=== PATIENT | male | born 1970 | race African-American/Black ===

== ENCOUNTER 2022-10-26 00:36 | Day surgery (SDC) | payer OTHER, SELFPAY ==
[2022-10-15 12:08] VITALS: BMI 24.9
--- NOTE | 2022-10-25 19:19 | PM.HPGS ---
History of Present Illness History of Present Illness Consent: Risks, benefits, and alternatives have been discussed and questions answered. Patient agrees to proceed with procedure. Chief complaint: neoplasm screening Narrative: Rodo Moran is a 52 year old male who is referred for colon cancer screening. Review of Systems Review of Systems: All systems reviewed & are unremarkable except as noted in HPI and below PMFSH Past Medical History Medical History (Updated 10/26/22 @ 09:30 by Derek Butt MD) HTN (hypertension) Social History Social History Smoking status: Never smoker Alcohol intake: current Drinks per week: 6 Substance use type: marijuana Other substance usage details: twice a week Living arrangements: alone Spiritual care concerns: No Meds Home Medications and Allergies Home Medications Medication Instructions Recorded Confirmed Type amlodipine 10 mg-benazepril 40 mg 1 cap PO DAILY 10/15/22 10/15/22 History capsule tamsulosin 0.4 mg capsule 0.4 mg PO DAILY 10/15/22 10/15/22 History valacyclovir 500 mg tablet 500 mg PO DAILY 10/15/22 10/15/22 History Allergies Allergy/AdvReac Type Severity Reaction Status Date / Time Sulfa (Sulfonamide Allergy Hives Verified 10/26/22 09:13 Antibiotics) Exam Resp: Auscultation: clear to auscultation bilaterally Cardio: Rate: regular rate Rhythm: regular rhythm GI: GI Palp: Yes Soft to palpation and No Tenderness to palpation present (GI) Assessment and Plan Assessment and plan (1) Colon cancer screening: Code(s): Z12.11 - Encounter for screening for malignant neoplasm of colon Status: Acute Assessment and Plan: Colonoscopy with possible biopsy or polypectomy or cautery or injection of substances.
[2022-10-26 09:14] VITALS: BP 135/78; PULSE 72; RESP 18; TEMP 36.4; O2SAT 100
--- NOTE | 2022-10-26 09:29 | P.PNAN_ITS ---
Anes - Initial Pre Proc Eval Procedure: Operation Date: 10/26/22 10:00 Proposed Procedures p Screening Colonoscopy - Андрей Andrade MD Date/Time: 10/26/22 09:29 Surgeon: Андрей Andrade MD Pre Op Diagnosis: neoplasm screening Patient Data Age: 52 Gender: M Height: 1.88 m Weight: 81.3 kg Last Vital Signs Temp 36.4 C L 10/26/22 09:14 Pulse 72 10/26/22 09:14 Resp 18 10/26/22 09:14 BP 135/78 10/26/22 09:14 Pulse Ox 100 10/26/22 09:14 O2 Del Method Room Air 10/26/22 09:14 Allergies Allergy/AdvReac Type Severity Reaction Status Date / Time Sulfa (Sulfonamide Allergy Hives Verified 10/26/22 09:13 Antibiotics) Home Medications Medication Instructions Recorded Confirmed Type amlodipine 10 mg-benazepril 40 mg 1 cap PO DAILY 10/15/22 10/15/22 History capsule tamsulosin 0.4 mg capsule 0.4 mg PO DAILY 10/15/22 10/15/22 History valacyclovir 500 mg tablet 500 mg PO DAILY 10/15/22 10/15/22 History Patient hx anesthesia problems: none Family hx anesthesia problems: none Results Review: All pre-operative results and documents have been reviewed as part of the pre- operative evaluation. [facility] Past Medical History Medical History (Updated 10/26/22 @ 09:30 by Derek Butt MD) HTN (hypertension) Social History Social History Smoking status: Never smoker Alcohol intake: current Drinks per week: 6 Substance use type: marijuana Other substance usage details: twice a week Living arrangements: alone Spiritual care concerns: No Anes - Eval Final PreProcedure Day of Procedure 10/26/22 09:29 Patient weight: normal Heart: regular rate and rhythm Lungs: clear to auscultation Airway: Mallampati scale class II Neurological: alert and oriented Last oral intake: >/= 8 hours ASA classification: II Emergent: no Anesthetic plan: proceed Anesthesia type and monitoring: general GIVS and standard monitoring Results Review: All pre-operative results and documents have been reviewed as part of the pre- operative evaluation. Informed Consent: The patient's anesthetic plan and its attendant risks and benefits were discuss ed with the patient/family/POA. Questions were solicited and answers provided to the satisfaction of the patient/family/POA.
[2022-10-26] MEDS: LACTATED RINGERS 1,000 ML 150 ML IV CONT (09:40)
[2022-10-26 10:14] VITALS: BP 107/67; PULSE 84; RESP 20; O2SAT 100
[2022-10-26 10:24] VITALS: BP 119/75; PULSE 72; RESP 16; O2SAT 100
[2022-10-26 10:34] VITALS: BP 120/78; PULSE 79; RESP 20; O2SAT 100
[2022-10-26 10:45] LABS: Glucose Point of Care 96 mg/dl (65-105)
== END 2022-10-26 11:05 | disposition home or self-care (01) ==
PROVIDERS: PCP Internal Medicine; Visit Provider Internal Medicine Gastroenterology
PROC: 0DJD8ZZ Inspection of Lower Intestinal Tract, Via Natural or Artificial Opening Endoscopic (ICD-10-PCS; CPT 45378; principal; 2022-10-26 10:00)
DX: Z12.11 Encounter for screening for malignant neoplasm of colon (principal); K63.5 Polyp of colon; K62.1 Rectal polyp; I10 Essential (primary) hypertension; F12.90 Cannabis use, unspecified, uncomplicated; Z79.899 Other long term (current) drug therapy
CPT/HCPCS: 45385; 82948; 88305; J2704; J7120